=== PATIENT | female | born 1970 | race Caucasian/White ===

== ENCOUNTER 2022-11-07 08:45 | Outpatient (CLI) | payer BC, SELFPAY ==
[2022-11-07 09:56] LABS: Hematocrit 45.1 % (37.0-47.0); Hemoglobin 14.9 g/dL (12.0-15.0); Mean Corpuscular Hemoglobin 29.9 pg (26-34); Mean Corpuscular Volume 90.4 fl (80-100); Platelet Count Result 307 k/mm3 (150-375); Red Blood Count 4.99 M/mm3 (4.2-5.4); Red Cell Distribution Width 13.6 % (11.5-14.5); White Blood Count 3.8 K/mm3 (4.5-10.0)
[2022-11-07 10:09] LABS: Alanine Aminotransferase 21 U/L (6-35); Albumin Level 4.4 g/dL (3.5-5.1); Alkaline Phosphatase 84 U/L (38-126); Anion Gap 6 mmol/L (8-16); Aspartate Amino Transferase 22 U/L (14-36); Bilirubin,Total 0.7 mg/dL (0.2-1.3); Blood Urea Nitrogen 14 mg/dL (7-17); Calcium 9.3 mg/dL (8.4-10.2); Carbon Dioxide 28 mmol/L (22-30); Chloride 104 mmol/L (98-107); Cholesterol 200 mg/dL (0-200); Estimated Glomerular Filt Rate > 60; Glucose 103 mg/dL (65-110); HDL Direct 73 mg/dL; Potassium 4.1 mmol/L (3.4-5.0); Sodium 138 mmol/L (137-145); Triglycerides 195 mg/dL (<150)
[2022-11-07 10:19] LABS: LDL Cholesterol Direct 87 mg/dL
[2022-11-07 10:36] LABS: Thyroid Stimulating Hormone 0.467 uIU/mL (0.465-4.680)
[2022-11-07 11:02] LABS: Free T4 Free Thyroxine 1.09 ng/mL (0.78-2.19); Vitamin D 25 Hydroxy 31.3 ng/mL
== END 2022-11-07 08:46 | disposition home or self-care (01) ==
LOC: ANHLAB 08:50
PROVIDERS: PCP Physician Assistant; Visit Provider Obstetrics & Gynecology Gynecology
DX: R53.83 Other fatigue (principal); N95.1 Menopausal and female climacteric states; Z82.49 Family history of ischemic heart disease and other diseases of the circulatory system
CPT/HCPCS: 36415; 80053; 80061; 82306; 84439; 84443; 85027

== ENCOUNTER → 2023-03-10 13:17 | Outpatient (CLI) | payer BC, SELFPAY ==
--- NOTE | ~2023-03-10 | DEXA_ITS ---
Bone Density Report Name: VALERIANO AYALA Age: 52 Sex: Female Ethnicity: White Date of : 1970 Indication: postmenopausal; screening for osteoporosis; Referring Provider: TARYN [place] Study: Bone densitometry was performed. Exam Date: March 10, 2023 Accession number: [id number] Bone Density: Region BMD T-score Z-score Classification AP Spine (L1-L4) 1.131 0.8 1.7 Normal Femoral Neck (Left) 0.749 -0.9 0.0 Normal Total Hip (Left) 0.907 -0.3 0.3 Normal Femoral Neck (Right) 0.735 -1.0 -0.1 Normal Total Hip (Right) 0.863 -0.6 -0.1 Normal Total Hip Mean 0.885 -0.5 0.1 Normal World Health Organization criteria for BMD impression classify patients as: Normal (T-score at or above -1.0), Osteopenia (T-score between -1.0 and -2.5), or Osteoporosis (T-score at or below -2.5). 10-year Fracture Risk: FRAX not reported because: All T-scores for Spine Total, Hip Total, Femoral Neck at or above -1.0 Clinical Information Provided by Patient: Has used the following medications: Vitamin D Patient maximum height was 62.3 Menopause Age: 45 No regular weight bearing exercise Does not regularly consume dairy products Drinks caffeinated beverages Onset of menses at age 11 Number of children 4 Impression: The patient has normal bone mass. Discussion: BONE DENSITY IS ABOVE THE MINIMUM DESIRABLE LEVEL AT ALL SKELETAL SITES TESTED. This patient?s bone mineral density is above the minimum desirable level (T-score -1.0 or better) at all sites measured. The patient should follow a healthful lifestyle (good nutrition with adequate calcium and vitamin D, and appropriate weight-bearing exercise). Follow-Up: Consider repeating this study in 5 years or sooner if there is some new clinical indication. Reported by: BABS on 03/10/2023 1:45:00 PM. Reviewed, dictated and finalized at location AArchana PAZ
== END ==
PROVIDERS: PCP Obstetrics & Gynecology Gynecology; Visit Provider Obstetrics & Gynecology Gynecology
DX: Z78.0 Asymptomatic menopausal state (principal)
CPT/HCPCS: 77080

== ENCOUNTER → 2023-05-12 12:33 | Outpatient (CLI) | payer BC, SELFPAY ==
--- NOTE | ~2023-05-12 | MM_ITS ---
EXAMINATION: MM screening francisco BI w rachell HISTORY: Screening mammogram, family history of breast cancer in her mother. TECHNIQUE: Craniocaudal and mediolateral oblique 3-D tomosynthesis images were obtained and synthetic 2-D images were generated. CAD analysis was submitted and interpreted. COMPARISON: No prior mammogram is available for comparison at this institution. BREAST PARENCHYMAL COMPOSITION: There are scattered areas of fibroglandular density. FINDINGS: RIGHT BREAST: There is a mass in the posterior third of the lower inner breast 8.5 cm from the nipple . LEFT BREAST: There is a possible obscured mass in the anterior third of the slightly upper, slightly outer breast. IMPRESSION: 1. Right breast mass and possible left breast mass. 2. Additional mammographic views and possible breast ultrasound are recommended. BI-RADS Category 0: Incomplete: Needs additional imaging evaluation. Reviewed, dictated and finalized at location A. R LODGE CLERK IMPRESSION: 1. Right breast mass and possible left breast mass. 2. Additional mammographic views and possible breast ultrasound are recommended . BI-RADS Category 0: Incomplete: Needs additional imaging evaluation.
== END ==
PROVIDERS: PCP Physician Assistant; Visit Provider Obstetrics & Gynecology Gynecology
DX: Z12.31 Encounter for screening mammogram for malignant neoplasm of breast (principal); R92.8 Other abnormal and inconclusive findings on diagnostic imaging of breast
CPT/HCPCS: 77063; 77067

== ENCOUNTER 2023-06-08 08:01 | Outpatient (CLI) | payer BC, SELFPAY ==
--- NOTE | ~2023-06-08 | MMUS_ITS ---
EXAMINATION: MM diagnostic francisco BI w rachell, US breast BI limited HISTORY: Right breast mass, possible left breast mass reported on May 12, 2023 screening mammogr am TECHNIQUE: Additional 3-D tomosynthesis images of both breasts were performed and synthetic 2-D image s were generated. CAD analysis was submitted and interpreted. High resolution upper inner and lower i nner quadrant right and outer upper and outer lower left quadrant breast ultrasound examination was p erformed. COMPARISON: None FINDINGS: MAMMOGRAPHIC FINDINGS: Approximately 4 x 9.5 mm circumscribed mass is noted at mid to posterior depth in the mid to lower ri ght breast. Approximately 6.8 x 10.8 mm circumscribed mass is suggested in the anterior outer mid left breast (sp ot craniocaudal Tomosynthesis image /). ULTRASOUND: Right breast: 4:00 6 cm from nipple: Approximately 3.2 x 4.7 x 4.6 mm incompletely circumscribed hypoechoic lesion with posterior shadowing. This appears to correspond to the mammographic finding on the right. The in completely circumscribed and abdomen with through shadowing are suspicious. Ultrasound-guided biopsy is recommended. 6:00 6 cm from nipple: Oval circumscribed approximately 2.6 x 3.4 x 3 mm hypoechoic lesion without aragon spicious shadowing, likely benign Left breast: 1:00 subareolar area: Parallel circumscribed hypoechoic 1 x 1.2 x 6.4 mm solid lesion, without suspic ious vascularity or posterior shadowing, likely benign. IMPRESSION: Right breast: Suspicious 4.7 mm mass at 4:00 6 cm from nipple; ultrasound-guided biopsy is recommende d. Right breast: BI-RADS Category 4, suspicious finding; biopsy should be considered Left breast: Probable benign 6.4 x 1.2 cm mass at 1:00 subareolar area; six-month diagnostic left francisco mogram and left breast ultrasound follow-up are recommended. Left breast: BI-RADS category 3: Probably benign. Six-month follow-up diagnostic mammogram and ultras ound examination are recommended Reviewed, dictated and finalized at location A. IMPRESSION: Right breast: Suspicious 4.7 mm mass at 4:00 6 cm from nipple; ultrasound-guide d biopsy is recommended. Right breast: BI-RADS Category 4, suspicious finding; biopsy should be consider ed Left breast: Probable benign 6.4 x 1.2 cm mass at 1:00 subareolar area; six-mon th diagnostic left mammogram and left breast ultrasound follow-up are recommend ed. Left breast: BI-RADS category 3: Probably benign. Six-month follow-up diagnosti c mammogram and ultrasound examination are recommended
== END 2023-06-08 08:02 ==
LOC: MICIMG 08:03
PROVIDERS: PCP Physician Assistant; Visit Provider Obstetrics & Gynecology Gynecology
DX: R92.8 Other abnormal and inconclusive findings on diagnostic imaging of breast (principal)
CPT/HCPCS: 76642; 77062; 77066; G0279